=== PATIENT | male | born 1940 | race Caucasian/White ===

== ENCOUNTER 2017-05-01 12:48 | Emergency (ER) | payer MEDICARE, OTHER ==
[~2017-05-01] VITALS: Ht 182.9 cm; Wt 90.7 kg
[~2017-05-01 12:48] MED LIST: ACET-6 PO; ALLO100T PO; ASPI-231 PO; CLOP75TA28 PO; FURO20TA3 PO; MELA3TAB27 PO; METO25TA5 PO; ROSU20TA14 PO
[2017-05-01] MEDS ORDERED: IPRATROPIUM BROM 0.5 MG/2.5ML INH SOL NEB ONE (14:00)
[2017-05-01] MEDS ORDERED: ALBUTEROL SULF 2.5 MG/0.5ML(0.5%) NEB SOLN NEB ONE (14:00)
[2017-05-01 14:05] VITALS: BP 135/69
[2017-05-01 14:19] LABS: Basophils # (auto) 0.1 uL; Eosinophils # (auto) 0.3 uL; Hemoglobin 12.3 g/dL (13.5-17.5); Lymphocytes # (auto) 1.4 uL; Neutrophils # (auto) 4.7 uL; White Blood Cell 7.5 10^3/uL (4.4-10.8)
[2017-05-01 14:21] LABS: Basophils % (auto) 1.1 % (0.0-2.0); Eosinophils % (auto) 4.5 % (0.0-7.0); Hematocrit 35.9 % (41.0-53.0); Lymphocytes % (auto) 18.8 % (10.0-50.0); Mean Corpuscular Hemoglobin 35.8 pg (28.0-32.0); Mean Corpuscular Hgb Conc. 34.3 g/dL (32.0-36.0); Mean Corpuscular Volume 104.3 fL (80.0-100.0); Mean Platelet Volume 7.1 fL (6.9-10.8); Monocytes # (auto) 0.9 uL; Monocytes % (auto) 12.5 % (0.0-12.0); Neutrophils % (auto) 63.1 % (37.0-80.0); Platelet Count (auto) 187 10^3/uL (140-450); Red Cell Distribution Width 16.9 % (11.8-14.3)
[2017-05-01 14:43] LABS: Albumin 3.7 g/dL (3.4-5.0); BUN/Creatinine Ratio 5.1; Bilirubin, Total 0.5 mg/dL (0.2-1.0); Calcium 8.9 mg/dL (8.5-10.1); Total Protein 7.7 g/dL (6.4-8.2)
== END 2017-05-01 16:51 | disposition home or self-care (01) ==
LOC: ER 12:48
DX: J20.9 Acute bronchitis, unspecified (principal); I25.810 Atherosclerosis of coronary artery bypass graft(s) without angina pectoris; I13.2 Hypertensive heart and chronic kidney disease with heart failure and with stage 5 chronic kidney disease, or end stage renal disease; E11.22 Type 2 diabetes mellitus with diabetic chronic kidney disease; N18.6 End stage renal disease; I50.9 Heart failure, unspecified; I73.9 Peripheral vascular disease, unspecified; F17.210 Nicotine dependence, cigarettes, uncomplicated; Z86.79 Personal history of other diseases of the circulatory system; Z99.2 Dependence on renal dialysis; Z95.1 Presence of aortocoronary bypass graft
CPT/HCPCS: 36415; 71020; 80053; 83735; 84443; 84484; 85025; 93005; 94640

== ENCOUNTER 2017-10-28 13:19 | Inpatient (IN) | payer MEDICARE, OTHER ==
[~2017-10-28] VITALS: Ht 182.9 cm; Wt 96.3 kg
[2017-10-28 14:49] LABS: Basophils # (auto) 0.1 uL; Eosinophils # (auto) 0.1 uL; Eosinophils % (auto) 1.9 % (0.0-7.0); Hematocrit 35.1 % (41.0-53.0); Hemoglobin 11.9 g/dL (13.5-17.5); Lymphocytes # (auto) 1.2 uL; Lymphocytes % (auto) 23.8 % (10.0-50.0); Mean Corpuscular Hemoglobin 35.3 pg (28.0-32.0); Mean Corpuscular Hgb Conc. 34.1 g/dL (32.0-36.0); Mean Corpuscular Volume 103.5 fL (80.0-100.0); Monocytes # (auto) 0.5 uL; Monocytes % (auto) 10.3 % (0.0-12.0); Neutrophils # (auto) 3.2 uL; Platelet Count (auto) 167 10^3/uL (140-450); Red Blood Cells 3.39 10^6/uL (4.5-5.90); Red Cell Distribution Width 14.9 % (11.8-14.3); White Blood Cell 5.2 10^3/uL (4.4-10.8)
[2017-10-28 15:02] LABS: Potassium 4.2 mmol/L (3.5-5.1)
[2017-10-28 15:07] LABS: Albumin 3.6 g/dL (3.4-5.0); BUN/Creatinine Ratio 5.8; Calcium 8.8 mg/dL (8.5-10.1)
[2017-10-28 15:09] LABS: Bilirubin, Total 0.6 mg/dL (0.2-1.0); Total Protein 7.5 g/dL (6.4-8.2)
[2017-10-28] MEDS ORDERED: PROMETHAZINE HCL 25 MG/ML 1ML IV PRN (16:30)
[2017-10-28] MEDS ORDERED: TEMAZEPAM 15 MG CAP PO PRN (16:30)
[2017-10-28] MEDS ORDERED: cefTRIAXone 1GM/10ml IVPUSH 10 ML IV ONE (16:30)
[2017-10-28] MEDS ORDERED: NITROGLYCERIN 0.4 MG SL TAB SL PRN (16:30)
[2017-10-28] MEDS ORDERED: LORazepam 0.5 MG TAB PO PRN (16:30)
[2017-10-28] MEDS ORDERED: MORPHINE SULFATE 4 MG/ML SYR/VIAL IV PRN ×2 (16:30)
[2017-10-28] MEDS ORDERED: MIDAZOLAM HCL 1MG/1ML-2 ML VIAL ONE (17:14)
[2017-10-28] MEDS ORDERED: fentaNYL CITRATE 100 MCG/2 ML VL ONE (17:14)
[2017-10-28] MEDS ORDERED: ONDANSETRON HCL 4 MG/2 ML VIAL ONE (17:14)
[2017-10-28] MEDS ORDERED: PROPOFOL 10 MG/ML 20 ML IV ONE (17:15)
[2017-10-28 17:22] LABS: INR 0.93 (0.9-1.15); Partial Thromboplastin Time 26.7 sec (22.64-33.71); Prothrombin Time 10.1 sec (9.37-12.3)
[2017-10-28] MEDS ORDERED: ceFAZolin 1GM/100ML 100 ML IV ONE (17:32)
[2017-10-28] MEDS ORDERED: LIDOCAINE 2% JELLY 11ml (GLYDO) ONE (17:41)
[2017-10-28 20:59] LABS: Hemoglobin 11.3 g/dL (13.5-17.5)
[2017-10-28 21:00] LABS: Hematocrit 33.2 % (41.0-53.0)
[2017-10-28 22:00] VITALS: BP 170/74
[2017-10-28 23:02] VITALS: BP 170/74
[2017-10-28 23:16] LABS: Hemoglobin 10.9 g/dL (13.5-17.5)
[2017-10-28 23:18] LABS: Hematocrit 32.1 % (41.0-53.0)
[2017-10-28] MEDS ORDERED: HYDR25TA35 PO (23:30)
[2017-10-28] MEDS ORDERED: HYDR50TA69 PO (23:30)
[2017-10-28] MEDS ORDERED: MULT-397 OR (23:30)
[2017-10-29] VITALS (8 sets, daily range): BP systolic 121–161; BP diastolic 42–68
[2017-10-29] MEDS: SODIUM CHLOR 0.9% PF (SALINE LOCK) 10ML VIAL/SYR IV SCH ×4 (00:57→22:51)
[2017-10-29 06:18] LABS: Hematocrit 31.9 % (41.0-53.0); Hemoglobin 10.9 g/dL (13.5-17.5)
[2017-10-29 06:41] LABS: Albumin 3.4 g/dL (3.4-5.0); BUN/Creatinine Ratio 6.3; Bilirubin, Total 0.5 mg/dL (0.2-1.0); Calcium 8.9 mg/dL (8.5-10.1); Potassium 5.5 mmol/L (3.5-5.1); Total Protein 6.8 g/dL (6.4-8.2)
[2017-10-29] MEDS: cefTRIAXone 1GM/10ml IVPUSH 10 ML IV SCH (09:14)
[2017-10-29] MEDS ORDERED: EPOETIN ALFA 10,000 UNIT/1 ML VIAL IV ONE (11:15)
[2017-10-29] MEDS: HYDROcodone-ACET 5/325MG TAB PO PRN ×2 (11:56→18:06)
[2017-10-29] MEDS: hydrALAZINE HCL 10 MG TAB PO SCH (22:53)
[2017-10-29] MEDS: ATORVASTATIN 20 MG TAB PO SCH (22:53)
[2017-10-29] MEDS: METOPROLOL TARTRATE 25 MG TAB PO SCH (22:54)
[2017-10-30 05:24] VITALS: BP 149/63
[2017-10-30 05:51] LABS: Basophils # (auto) 0 uL; Basophils % (auto) 0.6 % (0.0-2.0); Eosinophils # (auto) 0.2 uL; Monocytes # (auto) 0.5 uL; Neutrophils # (auto) 3.6 uL; Nucleated Red Blood Cells % 0.1 %; White Blood Cell 5.3 10^3/uL (4.4-10.8)
[2017-10-30 05:54] LABS: Eosinophils % (auto) 3.9 % (0.0-7.0); Hemoglobin 9.5 g/dL (13.5-17.5); Lymphocytes # (auto) 0.9 uL; Mean Corpuscular Hemoglobin 36.3 pg (28.0-32.0); Mean Corpuscular Hgb Conc. 35.1 g/dL (32.0-36.0); Mean Corpuscular Volume 103.5 fL (80.0-100.0); Monocytes % (auto) 9.4 % (0.0-12.0); Neutrophils % (auto) 68.1 % (37.0-80.0); Platelet Count (auto) 134 10^3/uL (140-450); Red Blood Cells 2.61 10^6/uL (4.5-5.90); Red Cell Distribution Width 15.1 % (11.8-14.3)
[2017-10-30 06:12] LABS: BUN/Creatinine Ratio 5.2; Phosphorus 5.2 mg/dL (2.5-4.90)
[2017-10-30] MEDS: SODIUM CHLOR 0.9% PF (SALINE LOCK) 10ML VIAL/SYR IV SCH ×3 (06:37→22:25)
[2017-10-30] MEDS: hydrALAZINE HCL 10 MG TAB PO SCH ×3 (06:38→22:25)
[2017-10-30 07:23] LABS: INR 0.92 (0.9-1.15); Partial Thromboplastin Time 27.5 sec (22.64-33.71)
[2017-10-30 08:10] VITALS: BP 136/69
[2017-10-30 08:57] VITALS: BP 136/69
[2017-10-30] MEDS: cefTRIAXone 1GM/10ml IVPUSH 10 ML IV SCH (09:19)
[2017-10-30] MEDS: LACTULOSE 20Gm/30ML SOLN PO PRN (09:20)
[2017-10-30] MEDS: METOPROLOL TARTRATE 25 MG TAB PO SCH ×2 (09:20→22:26)
[2017-10-30] MEDS: ALLOPURINOL 100 MG TAB PO SCH (09:21)
[2017-10-30 12:30] VITALS: BP 136/60
[2017-10-30 16:27] VITALS: BP 155/61
[2017-10-30 22:00] VITALS: BP 151/67
[2017-10-30] MEDS: ATORVASTATIN 20 MG TAB PO SCH (22:25)
[2017-10-31] VITALS (7 sets, daily range): BP systolic 133–151; BP diastolic 68–74
[2017-10-31] MEDS: SODIUM CHLOR 0.9% PF (SALINE LOCK) 10ML VIAL/SYR IV SCH ×3 (06:35→22:04)
[2017-10-31] MEDS: hydrALAZINE HCL 10 MG TAB PO SCH ×3 (06:38→22:03)
[2017-10-31] MEDS: ALLOPURINOL 100 MG TAB PO SCH (10:00)
[2017-10-31] MEDS: METOPROLOL TARTRATE 25 MG TAB PO SCH ×2 (10:00→22:03)
[2017-10-31] MEDS: cefTRIAXone 1GM/10ml IVPUSH 10 ML IV SCH (10:32)
[2017-10-31] MEDS: SODIUM CHLORIDE 0.9% 1,000 ML IV SCH (14:05)
[2017-10-31] MEDS ORDERED: ceFAZolin 1GM/100ML 100 ML IV ONE (17:05)
[2017-10-31] MEDS ORDERED: SODIUM CHL 0.9% 1000 ML BAG XX ONE (19:45)
[2017-10-31] MEDS ORDERED: EPOETIN ALFA 10,000 UNIT/1 ML VIAL IV ONE (19:45)
[2017-10-31] MEDS: ATORVASTATIN 20 MG TAB PO SCH (22:03)
[2017-11-01] VITALS (9 sets, daily range): BP systolic 133–171; BP diastolic 67–94
[2017-11-01] MEDS: SODIUM CHLORIDE 0.9% 1,000 ML IV SCH ×2 (02:35→15:55)
[2017-11-01] MEDS: ACETAMINOPHEN 500 MG TAB PO PRN ×2 (03:26→14:17)
[2017-11-01 05:47] LABS: Eosinophils # (auto) 0.1 uL; Lymphocytes # (auto) 0.9 uL; Lymphocytes % (auto) 10.6 % (10.0-50.0); Mean Corpuscular Hgb Conc. 34.6 g/dL (32.0-36.0); Monocytes # (auto) 0.6 uL
[2017-11-01 05:49] LABS: Basophils # (auto) 0 uL; Basophils % (auto) 0.5 % (0.0-2.0); Hemoglobin 9.4 g/dL (13.5-17.5); Monocytes % (auto) 7.3 % (0.0-12.0); Neutrophils # (auto) 6.6 uL; Neutrophils % (auto) 80.6 % (37.0-80.0); Nucleated Red Blood Cells % 0.1 %; Platelet Count (auto) 171 10^3/uL (140-450); White Blood Cell 8.2 10^3/uL (4.4-10.8)
[2017-11-01] MEDS: SODIUM CHLOR 0.9% PF (SALINE LOCK) 10ML VIAL/SYR IV SCH ×3 (05:50→22:11)
[2017-11-01] MEDS: hydrALAZINE HCL 10 MG TAB PO SCH ×3 (05:51→22:04)
[2017-11-01 06:27] LABS: Albumin 2.9 g/dL (3.4-5.0); BUN/Creatinine Ratio 5.9; Bilirubin, Total 0.5 mg/dL (0.2-1.0); Calcium 8.4 mg/dL (8.5-10.1); Potassium 4.1 mmol/L (3.5-5.1); Total Protein 6.3 g/dL (6.4-8.2)
[2017-11-01] MEDS: ALLOPURINOL 100 MG TAB PO SCH (11:11)
[2017-11-01] MEDS: cefTRIAXone 1GM/10ml IVPUSH 10 ML IV SCH (11:11)
[2017-11-01] MEDS: METOPROLOL TARTRATE 25 MG TAB PO SCH ×2 (11:12→22:03)
[2017-11-01] MEDS: ATORVASTATIN 20 MG TAB PO SCH (22:03)
[2017-11-01] MEDS: LACTULOSE 20Gm/30ML SOLN PO PRN (22:11)
[2017-11-02] MEDS: SODIUM CHLOR 0.9% PF (SALINE LOCK) 10ML VIAL/SYR IV SCH ×3 (06:09→22:46)
[2017-11-02] MEDS: hydrALAZINE HCL 10 MG TAB PO SCH ×3 (06:09→22:47)
[2017-11-02 06:50] LABS: Eosinophils # (auto) 0.1 uL; Hematocrit 29.8 % (41.0-53.0); Hemoglobin 10.5 g/dL (13.5-17.5); Lymphocytes # (auto) 1.1 uL; Neutrophils # (auto) 7.1 uL; Red Blood Cells 2.94 10^6/uL (4.5-5.90); White Blood Cell 8.9 10^3/uL (4.4-10.8)
[2017-11-02 06:53] LABS: Basophils # (auto) 0 uL; Basophils % (auto) 0.3 % (0.0-2.0); Eosinophils % (auto) 1.3 % (0.0-7.0); Lymphocytes % (auto) 12.5 % (10.0-50.0); Mean Corpuscular Hemoglobin 35.7 pg (28.0-32.0); Mean Corpuscular Hgb Conc. 35.2 g/dL (32.0-36.0); Mean Corpuscular Volume 101.3 fL (80.0-100.0); Monocytes # (auto) 0.5 uL; Monocytes % (auto) 6.1 % (0.0-12.0); Neutrophils % (auto) 79.8 % (37.0-80.0); Platelet Count (auto) 166 10^3/uL (140-450); Red Cell Distribution Width 16.2 % (11.8-14.3)
[2017-11-02 07:12] LABS: Albumin 2.9 g/dL (3.4-5.0)
[2017-11-02 07:15] LABS: Bilirubin, Total 0.8 mg/dL (0.2-1.0); Total Protein 6.9 g/dL (6.4-8.2)
[2017-11-02 09:00] VITALS: BP 154/64
[2017-11-02] MEDS: cefTRIAXone 1GM/10ml IVPUSH 10 ML IV SCH (09:00)
[2017-11-02 09:04] LABS: BUN/Creatinine Ratio 5.5; Calcium 8.8 mg/dL (8.5-10.1); Potassium 3.5 mmol/L (3.5-5.1)
[2017-11-02] MEDS: ALLOPURINOL 100 MG TAB PO SCH (10:00)
[2017-11-02] MEDS: METOPROLOL TARTRATE 25 MG TAB PO SCH ×2 (10:00→22:47)
[2017-11-02 13:00] VITALS: BP 137/70
[2017-11-02] MEDS ORDERED: ceFAZolin 1GM/100ML 100 ML IV ONE (14:37)
[2017-11-02] MEDS ORDERED: ROCURONIUM 10MG/ML 10ML VIAL IV ONE (14:45)
[2017-11-02] MEDS ORDERED: SUCCINYLCHOLINE CHLORIDE 20 MG/ML 10ML VIAL IV ONE (14:45)
[2017-11-02] MEDS ORDERED: fentaNYL CITRATE 100 MCG/2 ML VL ONE ×2 (14:48)
[2017-11-02] MEDS ORDERED: MIDAZOLAM HCL 1MG/1ML-2 ML VIAL ONE (14:48)
[2017-11-02] MEDS ORDERED: PROPOFOL 10 MG/ML 20 ML IV ONE (14:48)
[2017-11-02] MEDS ORDERED: GLYCOPYRROLATE 0.2 MG/ML 1ML VIAL ONE (15:38)
[2017-11-02] MEDS ORDERED: NEOSTIGMINE 1 MG/ML INJ (10mg/10ML VIAL) ONE (15:38)
[2017-11-02] MEDS: BELLADONNA ALKAL/OPIUM (16.2/30MG) RECT SUPP PR SCH (16:15)
[2017-11-02] MEDS ORDERED: ONDANSETRON HCL 4 MG/2 ML VIAL IV ONE (16:15)
[2017-11-02] MEDS ORDERED: MORPHINE SULFATE 4 MG/ML SYR/VIAL IV PRN (16:15)
[2017-11-02] MEDS ORDERED: ePHEDrine SULFATE 50 MG/ML AMP IV PRN (16:15)
[2017-11-02] MEDS ORDERED: hydrALAZINE HCL 20 MG/ML VL IV PRN (16:15)
[2017-11-02 22:00] VITALS: BP 124/60
[2017-11-02] MEDS: ATORVASTATIN 20 MG TAB PO SCH (22:47)
[2017-11-02] MEDS: LACTULOSE 20Gm/30ML SOLN PO PRN (22:48)
[2017-11-03] VITALS (7 sets, daily range): BP systolic 99–142; BP diastolic 44–72
[2017-11-03] MEDS: ACETAMINOPHEN 500 MG TAB PO PRN (04:36)
[2017-11-03] MEDS ORDERED: SODIUM CHLORIDE 0.9 % NEB SOLN 3ML NEB ONE (04:54)
[2017-11-03] MEDS ORDERED: ALBUTEROL SULF 2.5 MG/0.5ML(0.5%) NEB SOLN NEB PRN (05:00)
[2017-11-03] MEDS: hydrALAZINE HCL 10 MG TAB PO SCH ×3 (05:59→21:45)
[2017-11-03] MEDS: SODIUM CHLOR 0.9% PF (SALINE LOCK) 10ML VIAL/SYR IV SCH ×3 (05:59→21:44)
[2017-11-03 06:31] LABS: Eosinophils # (auto) 0.2 uL; Hemoglobin 9.2 g/dL (13.5-17.5); Monocytes # (auto) 0.6 uL; Monocytes % (auto) 6.4 % (0.0-12.0); Neutrophils # (auto) 6.6 uL; Red Cell Distribution Width 16.2 % (11.8-14.3)
[2017-11-03 06:34] LABS: Basophils # (auto) 0 uL; Basophils % (auto) 0.5 % (0.0-2.0); Eosinophils % (auto) 2.3 % (0.0-7.0); Hematocrit 26.9 % (41.0-53.0); Lymphocytes # (auto) 1.4 uL; Lymphocytes % (auto) 15.9 % (10.0-50.0); Mean Corpuscular Hemoglobin 35.3 pg (28.0-32.0); Mean Corpuscular Hgb Conc. 34.4 g/dL (32.0-36.0); Mean Corpuscular Volume 102.8 fL (80.0-100.0); Neutrophils % (auto) 74.9 % (37.0-80.0); Platelet Count (auto) 156 10^3/uL (140-450); Red Blood Cells 2.61 10^6/uL (4.5-5.90); White Blood Cell 8.8 10^3/uL (4.4-10.8)
[2017-11-03 06:57] LABS: Albumin 2.7 g/dL (3.4-5.0); BUN/Creatinine Ratio 6.7; Bilirubin, Total 0.5 mg/dL (0.2-1.0); Calcium 8.3 mg/dL (8.5-10.1); Potassium 3.6 mmol/L (3.5-5.1); Total Protein 6.4 g/dL (6.4-8.2)
[2017-11-03] MEDS: cefTRIAXone 1GM/10ml IVPUSH 10 ML IV SCH (08:45)
[2017-11-03] MEDS: ALLOPURINOL 100 MG TAB PO SCH (08:45)
[2017-11-03] MEDS: METOPROLOL TARTRATE 25 MG TAB PO SCH (08:46)
[2017-11-03] MEDS: BELLADONNA ALKAL/OPIUM (16.2/30MG) RECT SUPP PR SCH (08:47)
[2017-11-03] MEDS ORDERED: EPOETIN ALFA 10,000 UNIT/1 ML VIAL IV ONE (13:30)
[2017-11-03] MEDS: THROAT LOZENGES(CEPASTAT) MT PRN ×3 (15:36→21:50)
[2017-11-03] MEDS: METOPROLOL TARTRATE 50 MG TAB PO SCH (19:02)
[2017-11-03 20:27] LABS: Magnesium 2.2 mg/dL (1.6-2.6); Potassium 3.1 mmol/L (3.5-5.1)
[2017-11-03] MEDS: ATORVASTATIN 20 MG TAB PO SCH (21:45)
[2017-11-04] MEDS: LACTULOSE 20Gm/30ML SOLN PO PRN (05:20)
[2017-11-04 05:50] VITALS: BP 139/67
[2017-11-04] MEDS: SODIUM CHLOR 0.9% PF (SALINE LOCK) 10ML VIAL/SYR IV SCH ×2 (05:57→13:10)
[2017-11-04] MEDS: hydrALAZINE HCL 10 MG TAB PO SCH ×2 (05:57→13:10)
[2017-11-04 08:00] VITALS: BP 143/68
[2017-11-04 09:00] VITALS: BP 143/68
[2017-11-04] MEDS: BELLADONNA ALKAL/OPIUM (16.2/30MG) RECT SUPP PR SCH (09:38)
[2017-11-04] MEDS: METOPROLOL TARTRATE 50 MG TAB PO SCH (09:38)
[2017-11-04] MEDS: cefTRIAXone 1GM/10ml IVPUSH 10 ML IV SCH (09:38)
[2017-11-04] MEDS: ALLOPURINOL 100 MG TAB PO SCH (09:38)
[2017-11-04 13:00] VITALS: BP 146/61
[2017-11-04 13:50] VITALS: BP 146/61
== END 2017-11-04 14:56 | disposition home or self-care (01) | DRG 668 ==
LOC: ER 13:19 → OR 1 17:12 → WEST WING 17:13 → TELE-WESTW 17:24
PROVIDERS: ADMIT Internal Medicine; ATTEND Family Medicine
PROC: 0T9B80Z Drainage of Bladder with Drainage Device, Via Natural or Artificial Opening Endoscopic (ICD-10-PCS; principal; 2017-10-28 16:33)
PROC: 5A1D70Z Performance of Urinary Filtration, Intermittent, Less than 6 Hours Per Day (ICD-10-PCS; 2017-10-29)
PROC: 30233N1 Transfusion of Nonautologous Red Blood Cells into Peripheral Vein, Percutaneous Approach (ICD-10-PCS; 2017-11-01)
PROC: 5A1D70Z Performance of Urinary Filtration, Intermittent, Less than 6 Hours Per Day (ICD-10-PCS; 2017-11-01)
PROC: 0TBB8ZZ Excision of Bladder, Via Natural or Artificial Opening Endoscopic (ICD-10-PCS; 2017-11-02)
PROC: 0TBC8ZZ Excision of Bladder Neck, Via Natural or Artificial Opening Endoscopic (ICD-10-PCS; 2017-11-02)
PROC: 5A1D70Z Performance of Urinary Filtration, Intermittent, Less than 6 Hours Per Day (ICD-10-PCS; 2017-11-03)
DX: D49.4 Neoplasm of unspecified behavior of bladder (principal); N18.6 End stage renal disease; E87.5 Hyperkalemia; I42.9 Cardiomyopathy, unspecified; N13.8 Other obstructive and reflux uropathy; I13.11 Hypertensive heart and chronic kidney disease without heart failure, with stage 5 chronic kidney disease, or end stage renal disease; N25.81 Secondary hyperparathyroidism of renal origin; N32.0 Bladder-neck obstruction; J44.9 Chronic obstructive pulmonary disease, unspecified; R31.0 Gross hematuria; R33.8 Other retention of urine; N40.1 Benign prostatic hyperplasia with lower urinary tract symptoms; N36.5 Urethral false passage; D64.9 Anemia, unspecified; E78.00 Pure hypercholesterolemia, unspecified; E78.5 Hyperlipidemia, unspecified; I25.10 Atherosclerotic heart disease of native coronary artery without angina pectoris; F17.210 Nicotine dependence, cigarettes, uncomplicated; K59.00 Constipation, unspecified; I73.9 Peripheral vascular disease, unspecified; F41.9 Anxiety disorder, unspecified; N32.89 Other specified disorders of bladder; M10.9 Gout, unspecified; Z82.49 Family history of ischemic heart disease and other diseases of the circulatory system; I25.2 Old myocardial infarction; Z83.3 Family history of diabetes mellitus; Z99.2 Dependence on renal dialysis; Z86.79 Personal history of other diseases of the circulatory system; Z88.5 Allergy status to narcotic agent; Z95.1 Presence of aortocoronary bypass graft; Z90.49 Acquired absence of other specified parts of digestive tract; Z79.899 Other long term (current) drug therapy; Z90.79 Acquired absence of other genital organ(s)
CPT/HCPCS: 36415; 71045; 76775; 80048; 80053; 80061; 83735; 84100; 84132; 85014; 85018; 85025; 85610; 85652; 85730; 86850; 86900; 86901; 86920; 87040; 87086; 90935; 93005; 94640; 94761; 96374; 96375; 97163; J0330; J0690; J0885; J2250; J2405; J2704